=== PATIENT | male | born 1995 | race African-American/Black ===

== ENCOUNTER 2017-06-01 17:59 | Emergency (ER) | payer OTHER ==
--- NOTE | 2017-06-01 18:42 | EDM.PDOC ---
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 [No Known Home Meds] 06/01/17 [History] Past Medical History - Past Health History Medical/Surgical History: Denies Medical/Surgical History Social & Family History - Tobacco Use Smoking Status *Q: Never Smoker Second Hand Smoke Exposure: No - Caffeine Use Caffeine Use: Reports: None - Recreational Drug Use Recreational Drug Use: No Review of Systems - Review of Systems Review Of Systems: See Below Constitutional: Reports: No Symptoms Respiratory: Reports: No Symptoms Cardiovascular: Reports: No Symptoms Musculoskeletal: Reports: Hand Pain (Left hand pain following injury playing basketball last . 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 He states he is unsure specifically what caused injury. He has pain with certain cigar maker and positions of hand. Has mild swelling, no bruising, no obvious deformity. He is right hand dominant. Pain is mostly isolated to left medial aspect of hand, distal ulnar aspect of left wrist. does not have pain with movement of left wrist. ) Skin: Reports: No Symptoms Neurological: Reports: No Symptoms Psychiatric: Reports: No Symptoms ED EXAM, GENERAL - Physical Exam Exam: See Below Exam Limited By: No Limitations General Appearance: Alert, WD/WN, No Apparent Distress Respiratory/Chest: Lungs Clear, Normal Breath Sounds Cardiovascular: Regular Rate, Rhythm, No Murmur Extremities: Other (Left hand, mild swelling to dorsal aspect, mid 4th/5th metacarpal bones. has no tenderness to palpation along dorsal aspect of left hand. Palmar aspect, mid hand, approxiamtely 4th/5th metacarpals is tender to touch. Has normal ROM to all digits, including thumb. Has no pain to palpation of left proximal hand or wrist. Normal ROM to left wrist. No bruising, no obvious deformity. Normal capillary refill, NV intact. ) Neurological: Alert, Oriented, CN II-XII Intact ED TRAUMA EXTREMITY PROCEDURES - Splinting Left Upper Extremity Pre-Procedure NV Status: Normal Post-Procedure NV Status: Normal Splint Material: Plaster Splint Design: Volar Applied & Form Fitted By: Provider Provider Post-Splint Application NV Check: NV Status Normal, Good Position Complications: No Course - Vital Signs Text/Narrative:: 06/01/171949 Review of left hand xray does reveal a non-displaced fracture to 4th mid MCP. Formal radiology report pending. Patient notified of findings, and plan to place in a splint and have patient follow-up outpatient with orthopedics. 06/01/172011 volar splint placed to left hand/wrist. Patient tolerated procedure well. examination of hand/digits following splint reveals NV intact, normal sensation , normal capillary refill. normal ROM to fingers. Patient will be discharged home with plans to followup with orthopedics for further evaluation/management. Last Recorded V/S: Last Vital Signs Temp 98.7 F 06/01/17 18:06 Pulse 68 06/01/17 18:06 Resp 18 06/01/17 18:06 BP 131/88 06/01/17 18:06 Pulse Ox 100 06/01/17 18:06 Departure - Departure Time of Disposition: 19:45 Disposition: Home, Self-Care 01 Condition: Good Clinical Impression: Closed fracture of 4th metacarpal, Fracture of metacarpal bone, Fracture of hand - Discharge Information Instructions: Cast or Splint Care, [id number] Referrals: PCP,Not In Area [Primary Care Provider] - Garret Clark MD [Physician] - Forms: ED Department Discharge Additional Instructions: Recommend calling [facility] in the morning to schedule a follow-up appointment with Dr Clark. Phone number is [phone]. Monitor for any swelling, worsening pain, numbness/tingling to fingers, ect and return to ED as needed with any concerns. Keep left forearm elevated, treat any discomfort with over the counter tylenol or motrin, as directed.
--- NOTE | 2017-06-02 06:48 | CR ---
Left hand: Four views of the left hand were obtained. Comparison: No previous study. Oblique nondisplaced fracture is seen within the mid to proximal shaft of the fourth metacarpal. Soft tissue swelling is seen. No additional bony abnormality is identified. Impression: 1. Nondisplaced fourth metacarpal fracture. 2. Soft tissue swelling. Diagnostic code #3
== END 2017-06-01 20:25 | disposition home or self-care (01) ==
LOC: JD.ED 17:59
DX: S62.355A Nondisplaced fracture of shaft of fourth metacarpal bone, left hand, initial encounter for closed fracture (principal); X58.XXXA Exposure to other specified factors, initial encounter; Y93.67 Activity, basketball
CPT/HCPCS: 29075; 29125; 73130-26-LT; 73130-LT; 99283-25; 99284-25